=== PATIENT | female | born 1995 | race Caucasian/White ===

== ENCOUNTER 2016-06-20 20:17 | Observation (INO) | payer MEDICAID ==
[~2016-06-20] VITALS: Ht 160 cm; Wt 58.0 kg
[2016-06-20 20:18] VITALS: BP 117/78; PULSE 112; RESP 16; TEMP 97.9; O2SAT 97
[2016-06-20] MEDS ORDERED: SODIUM CHLOR 0.9% 1000 ML INJ 1,000 ML IV SCH (20:41)
[2016-06-20] MEDS ORDERED: ONDANSETRON HCL 4 MG/2 ML VIAL IVP ONE (20:45)
[2016-06-20] MEDS ORDERED: MORPHINE SULFATE 4 MG/ML INJ IV PUSH ONE (21:00)
[2016-06-20 21:04] VITALS: BP 109/64; PULSE 110; RESP 16; O2SAT 100
--- NOTE | 2016-06-20 21:06 | PD ---
HPI Chief Complaint: GI Complaint Time Seen by Provider: 21:01 Travel History International Travel<30 days: No Contact w/Intl Traveler<30days: No Traveled to known affect area: No History of Present Illness HPI 21-year-old female that presents to the ED for evaluation of nausea and vomiting as well as diarrhea and abdominal discomfort since today. Per patient she was seen in urgent care yesterday and diagnosed with bronchitis. Per patient she had a cough and runny nose as well as congestion. Per patient she was given medication and since today she's been having the diarrhea and nausea and vomiting. Per patient she's not been able to keep anything down. Per patient even water she does. She has possibility of . Per patient and her father is having the same symptoms but they started today. She denies eating anything new. No allergies to medication. She denies any chest pain or shortness of breath. Per patient and there is no blood in the stool or the emesis. States having some chills but no actual fever. No allergies to medication. Has not taken anything for this as she cannot keep anything down. Pain in her abdomen is diffuse and is 5 out of 10. PFSH Past Medical History Diminished Hearing: No Medical other: Yes (HYPOGLYCEMIA) Migraines: Yes ?: Not LMP: 05/26/16 Past Surgical History Surgical History: No Previous Surgery Social History Alcohol Use: No Tobacco Use: No Substance Use: No Allergies-Medications (Allergen,Severity, Reaction): Coded Allergies: No Known Allergies (Unverified , 06/20/16) Reported Meds & Prescriptions Reported Meds & Active Scripts Active No Active Prescriptions or Reported Medications Review of Systems General / Constitutional: Positive: Chills, No: Fever, Weight Gain, Weight Loss, Other Eyes: No: Diploplia, Blurred Vision, Photophobia, Drainage, Redness, Foreign Body Sensation, Pain, Tearing, Blind Spots, Visual changes, Blindness, Other HENT: Positive: Rhinitis, Congestion, No: Headaches, Vertigo, Lightheadedness , Sore Throat, Rhinorrhea, Nosebleed, Neck Stiffness, Neck Pain, Masses, Gingival Bleeding, Dental Difficulties, Ear Discharge, Earache, Other Cardiovascular: No: Chest Pain or Discomfort, Palpitations, Irregular Rhythm, Tachycardia, Diaphoresis, Syncope, Dyspnea on exertion, Varicosities, Edema, Cyanosis, Varicosities, Phlebitis, Claudication, Other Respiratory: Positive: Cough, No: Shortness of Breath, Wheezing, Sneezing, Orthopnea, Hemoptysis, Stridor, Night Sweats, Pleuritic Pain, Other Gastrointestinal: Positive: Nausea, Vomiting, Diarrhea, Abdominal Pain, No: Hematemesis, Hematochezia, Constipation, Changes in Bowel Habits, Indigestion, Dysphagia, Loss of Appetite, Other Genitourinary: No: Urgency, Frequency, Dysuria, Nocturia, Hematuria, Decreased Urinary Output, Oliguria, Hesitancy, Dribbling, Incontinence, Pelvic Pain, Flank Pain, Dyspareunia, Discharge, Dysmenorrhea, Menorrhagia, Metorrhagia, Vaginal Bleeding, Other Musculoskeletal: No: Myalgias, Arthralgias, Limited ROM, Weakness, Cramping, Edema, Pain, Atrophy, Other Skin: No Rash, No Itching, No Dryness, No Lumps, No Hives, No Change in Pigmentation, No Change in nails, No Alopecia, No Lesions, No Breast Lumps, No Breast Tenderness, No Breast Swelling, No Other Neurologic: No: Weakness, Dizziness, Syncope, Focal Abnormalities, Coordination Problem, Tremor, Ataxia, Headache, Change in Mentation, Slurred Speech, Paresthesia, Incontinence, Seizures, Sensory Disturbance, Other Psychiatric: No: Anxiety, Depression, Suicidal Ideations, Disorder of Thought, Mood Disorder, Substance Abuse, Homicidal Ideation, Other Endocrine: No: Heat Intolerance, Cold Intolerance, Polyuria, Polydipsia, Other Hematologic/Lymphatic: No: Easy Bruising, Lymph Node Enlargement, Other Physical Exam Narrative GENERAL: SKIN: Warm and dry. HEAD: Atraumatic. Normocephalic. EYES: Pupils equal and round. No scleral icterus. No injection or drainage. ENT: No nasal bleeding or discharge. Mucous membranes pink and moist. Tongue is midline. No uvula deviation. NECK: Trachea midline. No JVD. CARDIOVASCULAR: Regular rate and rhythm. No murmurs, S3, S4. RESPIRATORY: No accessory muscle use. Clear to auscultation. Breath sounds equal bilaterally. GASTROINTESTINAL: Abdomen soft, diffusely tender with deep palpation, but no guarding, nondistended. Hepatic and splenic margins not palpable. MUSCULOSKELETAL: Extremities without clubbing, cyanosis, or edema. No obvious deformities. Full range of motion of the upper and lower extremities bilaterally. 2+ pulses bilaterally. NEUROLOGICAL: Awake and alert. No obvious cranial nerve deficits. Motor grossly within normal limits. Five out of 5 muscle strength in the arms and legs. Normal speech. PSYCHIATRIC: Appropriate mood and affect; insight and judgment normal. Data Data Last Documented VS Vital Signs Date Time Temp Pulse Resp B/P Pulse Ox O2 Delivery O2 Flow Rate FiO2 06/20/16 21:04 110 16 109/64 100 Room Air 06/20/16 20:18 97.9 Orders Complete Blood Count With Diff (06/20/16 20:41) Comprehensive Metabolic Panel (06/20/16 20:41) Lipase (06/20/16 20:41) Urinalysis - C+S If Indicated (06/20/16 20:41) Iv Access Insert/Monitor (06/20/16 20:41) Ondansetron Inj (Zofran Inj) (06/20/16 20:45) Sodium Chlor 0.9% 1000 Ml Inj (Ns 1000 M (06/20/16 20:41) Ed Urine Pregnancytest Poc (06/20/16 20:41) Morphine Inj (Morphine Inj) (06/20/16 21:00) Sodium Chlor 0.9% 1000 Ml Inj (Ns 1000 M (06/20/16 21:15) Lactic Acid (06/20/16 21:24) Urine Culture (06/20/16 20:55) Chest, Single Ap (06/20/16 ) Ceftriaxone Inj (Rocephin Inj) (06/20/16 22:15) Influenzae A/B Antigen (06/20/16 22:47) Labs Laboratory Tests Test 06/20/16 06/20/16 20:55 21:30 White Blood Count 27.4 TH/MM3 Red Blood Count 4.99 MIL/MM3 Hemoglobin 15.1 GM/DL Hematocrit 44.2 % Mean Corpuscular Volume 88.6 FL Mean Corpuscular Hemoglobin 30.3 PG Mean Corpuscular Hemoglobin 34.2 % Concent Red Cell Distribution Width 12.4 % Platelet Count 320 TH/MM3 Mean Platelet Volume 9.2 FL Neutrophils (%) (Auto) 87.4 % Lymphocytes (%) (Auto) 3.8 % Monocytes (%) (Auto) 8.1 % Eosinophils (%) (Auto) 0.6 % Basophils (%) (Auto) 0.1 % Neutrophils # (Auto) 23.9 TH/MM3 Lymphocytes # (Auto) 1.0 TH/MM3 Monocytes # (Auto) 2.2 TH/MM3 Eosinophils # (Auto) 0.2 TH/MM3 Basophils # (Auto) 0.0 TH/MM3 CBC Comment AUTO DIFF Differential Comment AUTO DIFF CONFIRMED Platelet Estimate NORMAL Platelet Morphology Comment NORMAL Red Cell Morphology Comment NORMAL Urine Color YELLOW Urine Turbidity CLOUDY Urine pH 5.5 Urine Specific [place] 1.031 Urine Protein 30 mg/dL Urine Glucose (UA) NEG mg/dL Urine Ketones 10 mg/dL Urine Occult Blood NEG Urine Nitrite NEG Urine Bilirubin NEG Urine Urobilinogen LESS THAN 2.0 MG/DL Urine Leukocyte Esterase SMALL Urine RBC 4 /hpf Urine WBC 8 /hpf Urine Squamous Epithelial 50 /hpf Cells Urine Mucus MANY /lpf Microscopic Urinalysis Comment CULTURE INDICATED Sodium Level 138 MEQ/L Potassium Level 3.7 MEQ/L Chloride Level 105 MEQ/L Carbon Dioxide Level 23.6 MEQ/L Anion Gap 9 MEQ/L Blood Urea Nitrogen 18 MG/DL Creatinine 0.81 MG/DL Estimat Glomerular Filtration 89 ML/MIN Rate Random Glucose 138 MG/DL Calcium Level 8.9 MG/DL Total Bilirubin 0.4 MG/DL Aspartate Amino Transf 18 U/L (AST/SGOT) Alanine Aminotransferase 24 U/L (ALT/SGPT) Alkaline Phosphatase 104 U/L Total Protein 8.3 GM/DL Albumin 4.3 GM/DL Lipase 131 U/L Lactic Acid Level 0.8 mmol/L MDM Medical Decision Making Medical Screen Exam Complete: Yes Emergency Medical Condition: Yes Medical Record Reviewed: Yes Interpretation(s) CBC & BMP Diagram 06/20/16 20:55 lactic acid WNL LFTs and lipase WNL UA shows possible UTI Differential Diagnosis Gastroenteritis versus gastritis versus food poisoning versus viral illness Narrative Course 21-year-old female that presents for nausea, vomit, abd pain and diarrhea. Patient was properly examined by me and my attending. Labs were drawn. Patient was given IV fluids as well as pain medication and antiemetics. Labs show elevated levels accountable normal lactic acid elevation. Possible UTI. Even after 2 bags of fluids patient still tachycardic with an tachycardia in the 100s. Both my attending and I evaluated the patient's abdomen and appears to be benign. Soft. No guarding with no recommend CT imaging at this time. Patient does appear to be septic however. Because of this we'll recommend admission police observation. I started patient ceftriaxone to cover for the UTI as I don't have any other source of infection or blood believe this to be likely secondary to a viral infection. Case was discussed with Dr. Velazquez who agrees to admission. Patient was told of plan and agrees with plan. Sepsis Criteria SIRS Criteria (2 or more): Heart rate over 90, WBC > 66087, < 4000 or > 10% bands Sepsis Criteria (SIRS+source): Infect source susp/known Diagnosis Primary Impression: Sepsis Qualified Code: A41.9 - Sepsis, due to unspecified organism Additional Impressions: Cystitis Viral illness Admitting Information Admitting Physician Requests: Admit Scripts No Active Prescriptions or Reported Meds Giacomo Hammond Jun 20, 2016 21:06
[2016-06-20] MEDS ORDERED: SODIUM CHLOR 0.9% 1000 ML INJ 1,000 ML IV ONE (21:15)
[2016-06-20 21:16] LABS: AUTOMATED NEUTROPHIL # 23.9 TH/MM3 (1.8-7.7); BASOPHIL % 0.1 % (0.0-2.0); EOSINOPHIL # 0.2 TH/MM3 (0-0.4); EOSINOPHIL % 0.6 % (0.0-4.0); HEMATOCRIT 44.2 % (35.0-46.0); LYMPH % 3.8 % (9.0-44.0); MEAN CELL VOLUME 88.6 FL (80.0-100.0); MEAN CORPUSCULAR HEMOGLOBIN 30.3 PG (27.0-34.0); MEAN CORPUSCULAR HGB CONC 34.2 % (32.0-36.0); MONO % 8.1 % (0.0-8.0); NEUT % 87.4 % (16.0-70.0); PLATELET COUNT 320 TH/MM3 (150-450); RED BLOOD COUNT 4.99 MIL/MM3 (4.00-5.30); RED CELL DISTRIBUTION WIDTH 12.4 % (11.6-17.2); WHITE BLOOD COUNT 27.4 TH/MM3 (4.0-11.0)
[2016-06-20 21:17] LABS: HEMO FLAGS AUTO DIFF
[2016-06-20 21:25] LABS: BLOOD, URINE NEG (NEG); COMMENT (UR) CULTURE INDICATED; CULTURE IF INDICATED CULTURE INDICATED; GLUCOSE,URINE NEG (NEG); KETONE, URINE 10 mg/dL (NEG); MUCUS URINE MANY /lpf (OCC); NITRITE,URINE NEG (NEG); PH, URINE 5.5 (5.0-8.5); SQUAMOUS EPITHELIAL CELL URINE 50 /hpf (0-5); URINE COLOR YELLOW (YELLW/STRAW)
[2016-06-20 21:53] LABS: ANION GAP 9 MEQ/L (5-15); AST (GOT) 18 U/L (15-37); BICARBONATE 23.6 MEQ/L (21.0-32.0); BLOOD UREA NITROGEN 18 MG/DL (7-18); CHLORIDE 105 MEQ/L (98-107); GLOMERULAR FILTRATION RATE 89 ML/MIN (>89); POTASSIUM 3.7 MEQ/L (3.5-5.1); SODIUM (NA) 138 MEQ/L (136-145)
[2016-06-20 21:56] LABS: ALKALINE PHOSPHATASE 104 U/L (45-117); ALT (GPT) 24 U/L (10-53); TOTAL BILIRUBIN ADULT 0.4 MG/DL (0.2-1.0)
[2016-06-20 22:08] LABS: PLATELET ESTIMATE SMEAR NORMAL (NORMAL); PLATELET MORPHOLOGY NORMAL (NORMAL); SCAN/DIFF AUTO DIFF CONFIRMED
[2016-06-20] MEDS ORDERED: cefTRIAXone INJ 1,000 MG in SODIUM CHLORIDE 0.9% INJ 100 ML IV ONE (22:15)
--- NOTE | 2016-06-20 22:20 | RADRPT ---
EXAM DATE/TIME: 06/20/2016 21:51 [facility] COMPARISON: No previous studies available for comparison. INDICATIONS : Cough. MEDICAL HISTORY : None. SURGICAL HISTORY : None. ENCOUNTER: Initial ACUITY: 1 day PAIN SCORE: 0/10 LOCATION: Bilateral chest FINDINGS: A single view of the chest demonstrates the lungs to be symmetrically aerated without evidence of mas s, infiltrate or effusion. The cardiomediastinal contours are unremarkable. Osseous structures are intact. CONCLUSION: No evidence of acute cardiopulmonary disease. Shyam Devlin MD on June 20, 2016 at 22:19 Board Certified Radiologist. This report was verified electronically.
[2016-06-20] MEDS ORDERED: ACETAMINOPHEN 325 MG TAB PO PRN (23:00)
[2016-06-20] MEDS ORDERED: SODIUM CHLORIDE 0.9% FLUSH 5 ML FLUSH FLUSH PRN (23:00)
[2016-06-20] MEDS ORDERED: NALOXONE HCL 0.4 MG/ML AMP IV PRN (23:00)
--- NOTE | 2016-06-20 23:01 | PD ---
Data Data Last Documented VS Vital Signs Date Time Temp Pulse Resp B/P Pulse Ox O2 Delivery O2 Flow Rate FiO2 06/20/16 21:04 110 16 109/64 100 Room Air 06/20/16 20:18 97.9 Orders Complete Blood Count With Diff (06/20/16 20:41) Comprehensive Metabolic Panel (06/20/16 20:41) Lipase (06/20/16 20:41) Urinalysis - C+S If Indicated (06/20/16 20:41) Iv Access Insert/Monitor (06/20/16 20:41) Ondansetron Inj (Zofran Inj) (06/20/16 20:45) Sodium Chlor 0.9% 1000 Ml Inj (Ns 1000 M (06/20/16 20:41) Ed Urine Pregnancytest Poc (06/20/16 20:41) Morphine Inj (Morphine Inj) (06/20/16 21:00) Sodium Chlor 0.9% 1000 Ml Inj (Ns 1000 M (06/20/16 21:15) Lactic Acid (06/20/16 21:24) Urine Culture (06/20/16 20:55) Chest, Single Ap (06/20/16 ) Ceftriaxone Inj (Rocephin Inj) (06/20/16 22:15) Influenzae A/B Antigen (06/20/16 22:47) Labs Laboratory Tests Test 06/20/16 06/20/16 20:55 21:30 White Blood Count 27.4 TH/MM3 Red Blood Count 4.99 MIL/MM3 Hemoglobin 15.1 GM/DL Hematocrit 44.2 % Mean Corpuscular Volume 88.6 FL Mean Corpuscular Hemoglobin 30.3 PG Mean Corpuscular Hemoglobin 34.2 % Concent Red Cell Distribution Width 12.4 % Platelet Count 320 TH/MM3 Mean Platelet Volume 9.2 FL Neutrophils (%) (Auto) 87.4 % Lymphocytes (%) (Auto) 3.8 % Monocytes (%) (Auto) 8.1 % Eosinophils (%) (Auto) 0.6 % Basophils (%) (Auto) 0.1 % Neutrophils # (Auto) 23.9 TH/MM3 Lymphocytes # (Auto) 1.0 TH/MM3 Monocytes # (Auto) 2.2 TH/MM3 Eosinophils # (Auto) 0.2 TH/MM3 Basophils # (Auto) 0.0 TH/MM3 CBC Comment AUTO DIFF Differential Comment AUTO DIFF CONFIRMED Platelet Estimate NORMAL Platelet Morphology Comment NORMAL Red Cell Morphology Comment NORMAL Urine Color YELLOW Urine Turbidity CLOUDY Urine pH 5.5 Urine Specific [place] 1.031 Urine Protein 30 mg/dL Urine Glucose (UA) NEG mg/dL Urine Ketones 10 mg/dL Urine Occult Blood NEG Urine Nitrite NEG Urine Bilirubin NEG Urine Urobilinogen LESS THAN 2.0 MG/DL Urine Leukocyte Esterase SMALL Urine RBC 4 /hpf Urine WBC 8 /hpf Urine Squamous Epithelial 50 /hpf Cells Urine Mucus MANY /lpf Microscopic Urinalysis Comment CULTURE INDICATED Sodium Level 138 MEQ/L Potassium Level 3.7 MEQ/L Chloride Level 105 MEQ/L Carbon Dioxide Level 23.6 MEQ/L Anion Gap 9 MEQ/L Blood Urea Nitrogen 18 MG/DL Creatinine 0.81 MG/DL Estimat Glomerular Filtration 89 ML/MIN Rate Random Glucose 138 MG/DL Calcium Level 8.9 MG/DL Total Bilirubin 0.4 MG/DL Aspartate Amino Transf 18 U/L (AST/SGOT) Alanine Aminotransferase 24 U/L (ALT/SGPT) Alkaline Phosphatase 104 U/L Total Protein 8.3 GM/DL Albumin 4.3 GM/DL Lipase 131 U/L Lactic Acid Level 0.8 mmol/L [facility] Supervised Visit with ALISON: Yes Narrative Course The history, exam, and medical decision-making in the associated mid-level provider note were completed with my assistance. I reviewed and agree with the findings presented. I attest that I had a [id number] encounter with the patient on the same day, and personally performed and documented my assessment and findings in the medical record. *My assessment and Findings: The 21 year-old woman presents emergency Department with nausea and vomiting times today in the setting of URI symptoms times a couple days. Family member at home with similar symptoms. She's been thrown up all day. She has belly pain when she throws up only. No urinary symptoms. Some fevers and chills at home. Labs show markedly elevated white count consistent with infection. Belly exam is really pretty benign. She has some trace amount of tenderness in the left lower quadrant, but nothing in the right. No rebound or guarding. Recommend against CT imaging at this time. She does look a little bit ill, and taken together with her high white count, and lack of definite/definable source , we'll plan on admitting patient for observation. Diagnosis Primary Impression: Sepsis Qualified Code: A41.9 - Sepsis, due to unspecified organism Additional Impressions: Viral illness Cystitis Scripts No Active Prescriptions or Reported Meds Graeme Conde MD Jun 20, 2016 23:01
[2016-06-20] MEDS: ONDANSETRON HCL 4 MG/2 ML VIAL IVP PRN ×2 (23:38→23:56)
[2016-06-21 00:01] VITALS: BP 119/77; TEMP 98.7
[2016-06-21 01:16] VITALS: BP 110/56; PULSE 99; RESP 21; TEMP 98.7; O2SAT 97
[2016-06-21 03:57] VITALS: BP 107/50; PULSE 96; RESP 21; TEMP 98.7; O2SAT 98
--- NOTE | 2016-06-21 04:45 | HHI.HP ---
[facility] Physician No Primary Care Physician Admission Diagnosis sepsis, cystitis, viral illness Diagnoses: Travel History International Travel<30 Days: No Contact w/Intl Traveler <30 Da: No Traveled to Known Affected Are: No History of Present Illness n/v since yesterday no urinary symptoms sob/cough - bronchitis - seen at urgent care, given cough syrup and amoxicillin no chest pain no fever +chills no unusual dietary intake 4 family members with similar symptoms Past Family Social History Allergies: Coded Allergies: No Known Allergies (Unverified , 06/20/16) Physical Exam Vital Signs Vital Signs Date Time Temp Pulse Resp B/P Pulse Ox O2 Delivery O2 Flow Rate FiO2 06/21/16 03:57 98.7 96 21 107/50 98 06/21/16 01:16 98.7 99 21 110/56 97 06/21/16 00:01 98.7 112 16 119/77 100 06/20/16 21:04 110 16 109/64 100 Room Air 06/20/16 20:46 16 06/20/16 20:18 97.9 112 16 117/78 97 Room Air Physical Exam GENERAL: This is a well-nourished, well-developed patient, in no apparent distress. SKIN: No rashes, ecchymoses or lesions. Cool and dry. HEAD: Atraumatic. Normocephalic. No temporal or scalp tenderness. EYES: Pupils equal round and reactive. Extraocular motions intact. No scleral icterus. No injection or drainage. ENT: Nose without bleeding, purulent drainage or septal hematoma. Throat without erythema, tonsillar hypertrophy or exudate. Uvula midline. Airway patent. NECK: Trachea midline. No JVD or lymphadenopathy. Supple, nontender, no meningeal signs. CARDIOVASCULAR: Regular rate and rhythm without murmurs, gallops, or rubs. RESPIRATORY: Clear to auscultation. Breath sounds equal bilaterally. No wheezes , rales, or rhonchi. GASTROINTESTINAL: Abdomen soft, non-tender, nondistended. No hepato-splenomegaly , or palpable masses. No guarding. MUSCULOSKELETAL: Extremities without clubbing, cyanosis, or edema. No joint tenderness, effusion, or edema noted. No calf tenderness. Negative Homans sign bilaterally. NEUROLOGICAL: Awake and alert. Cranial nerves II through XII intact. Motor and sensory grossly within normal limits. Five out of 5 muscle strength in all muscle groups. Normal speech. Laboratory Laboratory Tests Test 06/20/16 06/20/16 20:55 21:30 White Blood Count 27.4 Red Blood Count 4.99 Hemoglobin 15.1 Hematocrit 44.2 Mean Corpuscular Volume 88.6 Mean Corpuscular Hemoglobin 30.3 Mean Corpuscular Hemoglobin 34.2 Concent Red Cell Distribution Width 12.4 Platelet Count 320 Mean Platelet Volume 9.2 Neutrophils (%) (Auto) 87.4 Lymphocytes (%) (Auto) 3.8 Monocytes (%) (Auto) 8.1 Eosinophils (%) (Auto) 0.6 Basophils (%) (Auto) 0.1 Neutrophils # (Auto) 23.9 Lymphocytes # (Auto) 1.0 Monocytes # (Auto) 2.2 Eosinophils # (Auto) 0.2 Basophils # (Auto) 0.0 CBC Comment AUTO DIFF Differential Comment AUTO DIFF CONFIRMED Platelet Estimate NORMAL Platelet Morphology Comment NORMAL Red Cell Morphology Comment NORMAL Urine Color YELLOW Urine Turbidity CLOUDY Urine pH 5.5 Urine Specific [place] 1.031 Urine Protein 30 Urine Glucose (UA) NEG Urine Ketones 10 Urine Occult Blood NEG Urine Nitrite NEG Urine Bilirubin NEG Urine Urobilinogen LESS THAN 2.0 Urine Leukocyte Esterase SMALL Urine RBC 4 Urine WBC 8 Urine Squamous Epithelial 50 Cells Urine Mucus MANY Microscopic Urinalysis Comment CULTURE INDICATED Sodium Level 138 Potassium Level 3.7 Chloride Level 105 Carbon Dioxide Level 23.6 Anion Gap 9 Blood Urea Nitrogen 18 Creatinine 0.81 Estimat Glomerular Filtration 89 Rate Random Glucose 138 Calcium Level 8.9 Total Bilirubin 0.4 Aspartate Amino Transf 18 (AST/SGOT) Alanine Aminotransferase 24 (ALT/SGPT) Alkaline Phosphatase 104 Total Protein 8.3 Albumin 4.3 Lipase 131 Lactic Acid Level 0.8 Date/Time Procedure Status Source Growth 06/20/16 22:50 Influenza Types A,B Antigen ([facility]) - Final Complete Nasal Washing NEGATIVE FOR FLU A AND B ANTIGEN.... 06/20/16 20:55 Urine Culture Worksheet Urine Clean Catch Pending Result Diagram: 06/20/16205406/20/162054 Assessment and Plan Problem List: (1) Gastroenteritis ICD Code: K52.9 Status: Acute Assessment and Plan Written by Shakira Barbour, acting as scribe for Dr. Herrera on 06/21/16 at 04:45. Physician Certification Order for Inpatient Services The services are ordered in accordance with Medicare regulations or non- Medicare payer requirements, as applicable. In the case of services not specified as inpatient-only, they are appropriately provided as inpatient services in accordance with the 2-midnight benchmark. days is the estimated time the patient will need to remain in the hospital, assuming treatment plan goals are met and no additional complications. Shakira Barbour Jun 21, 2016 04:45
--- NOTE | 2016-06-21 04:55 | HHI.HP ---
HPI Service [facility] Primary Care Physician No Primary Care Physician Admission Diagnosis sepsis, cystitis, viral illness Diagnoses: (1) Gastroenteritis (2) Urinary tract infection Chief Complaint: Nausea and vomiting Travel History International Travel<30 Days: No Contact w/Intl Traveler <30 Da: No Traveled to Known Affected Are: No History of Present Illness Ms. Schaefer is a 21-year-old female with a past medical history of hypoglycemia and classic migraines who presented to the emergency department on 06/20/2016 with abdominal pain, nausea and vomiting, and diarrhea. White blood count in the emergency room was 27.4 with neutrophilia and lymphocytosis. Urinalysis was suspicious for urinary tract infection; culture was sent and is pending. The patient is seen in the CDU. She reports that she had nausea and vomiting yesterday and was unable to keep down even water. She is currently feeling a bit better and has been able to hold water down. She is requesting to have her diet advanced. She denies any urinary symptoms, chest pain, fever. She reports for other family members with similar symptoms and no unusual dietary intake. She was seen at urgent care yesterday and diagnosed with bronchitis and treated with amoxicillin and cough syrup. . Review of Systems Except as stated in HPI: all other systems reviewed are Neg Past Family Social History Past Medical History "Classic" Migraines Hypoglycemia . Past Surgical History None . Reported Medications Reported Meds & Active Scripts Active No Active Prescriptions or Reported Medications . Allergies: Coded Allergies: No Known Allergies (Unverified , 06/20/16) Active Ordered Medications Current Medications Ondansetron HCl 4 mg 4 mg ONCE ONCE IVP Last administered on 06/20/16 20:57; Start 06/20/16 at 20:45; Stop 06/20/16 at 20:46; Status DC Sodium Chloride (NS 1000 ml Inj) 1,000 ml @ 1,000 mls/hr Q1H IV Last administered on 06/20/16 20:56; Start 06/20/16 at 20:41; Stop 06/20/16 at 21:40 ; Status DC Morphine Sulfate 4 mg 4 mg ONCE ONCE IV PUSH Last administered on 06/20/16 21 :06; Start 06/20/16 at 21:00; Stop 06/20/16 at 21:01; Status DC Sodium Chloride 1,000 ml @ 2,000 mls/hr Q30M ONCE IV Last administered on 06/20 21:24; Start 06/20/16 at 21:15; Stop 06/20/16 at 21:44; Status DC Ceftriaxone Sodium/Sodium Chloride (Rocephin Inj/NS Inj) 100 ml @ 200 mls/hr ONCE ONCE IV Last administered on 06/20/16 22:46; Start 06/20/16 at 22:15; Stop 06/20/16 at 22:44; Status DC IV Flush (NS Flush) 2 ml UNSCH PRN FLUSH FLUSH AFTER USING IV ACCESS; Start 03/27 at 23:00 IV Flush (NS Flush) 2 ml BID FLUSH ; Start 06/21/16 at 09:00 Acetaminophen (Tylenol) 650 mg Q4H PRN PO TEMP > 100.4; Start 06/20/16 at 23:00 Ondansetron HCl (Zofran Inj) 4 mg Q6H PRN IVP NAUSEA OR VOMITING Last administered on 06/20/16 23:56; Start 06/20/16 at 23:00 Naloxone HCl (Narcan Inj) 0.4 mg UNSCH PRN IV SEE LABEL COMMENTS; Start at 23:00 . Family History Multiple family members with similar symptoms . Social History Tobacco: Denies Alcohol: Denies Illicit Drugs: Denies . Physical Exam Vital Signs Vital Signs Date Time Temp Pulse Resp B/P Pulse Ox O2 Delivery O2 Flow Rate FiO2 06/21/16 03:57 98.7 96 21 107/50 98 06/21/16 01:16 98.7 99 21 110/56 97 06/21/16 00:01 98.7 112 16 119/77 100 06/20/16 21:04 110 16 109/64 100 Room Air 06/20/16 20:46 16 06/20/16 20:18 97.9 112 16 117/78 97 Room Air Physical Exam GENERAL: This is a pleasant, well-nourished, well-developed patient, in no apparent distress. SKIN: No rashes, ecchymoses or lesions. Cool and dry. HEAD: Atraumatic. Normocephalic. EYES: No scleral icterus. No injection or drainage. ENT: Nose without bleeding, purulent drainage. NECK: Trachea midline. No JVD or lymphadenopathy. CARDIOVASCULAR: Regular rate and rhythm without murmurs, gallops, or rubs. RESPIRATORY: Clear to auscultation. Breath sounds equal bilaterally. No wheezes , rales, or rhonchi. GASTROINTESTINAL: Abdomen soft, non-tender, nondistended. No guarding. MUSCULOSKELETAL: Extremities without clubbing, cyanosis, or edema. No calf tenderness. NEUROLOGICAL: Awake and alert. Motor and sensory grossly within normal limits. Normal speech. . Laboratory Laboratory Tests Test 06/20/16 06/20/16 20:55 21:30 White Blood Count 27.4 Red Blood Count 4.99 Hemoglobin 15.1 Hematocrit 44.2 Mean Corpuscular Volume 88.6 Mean Corpuscular Hemoglobin 30.3 Mean Corpuscular Hemoglobin 34.2 Concent Red Cell Distribution Width 12.4 Platelet Count 320 Mean Platelet Volume 9.2 Neutrophils (%) (Auto) 87.4 Lymphocytes (%) (Auto) 3.8 Monocytes (%) (Auto) 8.1 Eosinophils (%) (Auto) 0.6 Basophils (%) (Auto) 0.1 Neutrophils # (Auto) 23.9 Lymphocytes # (Auto) 1.0 Monocytes # (Auto) 2.2 Eosinophils # (Auto) 0.2 Basophils # (Auto) 0.0 CBC Comment AUTO DIFF Differential Comment AUTO DIFF CONFIRMED Platelet Estimate NORMAL Platelet Morphology Comment NORMAL Red Cell Morphology Comment NORMAL Urine Color YELLOW Urine Turbidity CLOUDY Urine pH 5.5 Urine Specific [place] 1.031 Urine Protein 30 Urine Glucose (UA) NEG Urine Ketones 10 Urine Occult Blood NEG Urine Nitrite NEG Urine Bilirubin NEG Urine Urobilinogen LESS THAN 2.0 Urine Leukocyte Esterase SMALL Urine RBC 4 Urine WBC 8 Urine Squamous Epithelial 50 Cells Urine Mucus MANY Microscopic Urinalysis Comment CULTURE INDICATED Sodium Level 138 Potassium Level 3.7 Chloride Level 105 Carbon Dioxide Level 23.6 Anion Gap 9 Blood Urea Nitrogen 18 Creatinine 0.81 Estimat Glomerular Filtration 89 Rate Random Glucose 138 Calcium Level 8.9 Total Bilirubin 0.4 Aspartate Amino Transf 18 (AST/SGOT) Alanine Aminotransferase 24 (ALT/SGPT) Alkaline Phosphatase 104 Total Protein 8.3 Albumin 4.3 Lipase 131 Lactic Acid Level 0.8 Date/Time Procedure Status Source Growth 06/20/16 22:50 Influenza Types A,B Antigen ([facility]) - Final Complete Nasal Washing NEGATIVE FOR FLU A AND B ANTIGEN.... 06/20/16 20:55 Urine Culture Worksheet Urine Clean Catch Pending Result Diagram: 06/20/16205406/20/162054 Imaging Chest x-ray with no acute cardiopulmonary disease noted Assessment and Plan Problem List: (1) Gastroenteritis ICD Code: K52.9 Status: Acute (2) Leukocytosis ICD Code: D72.829 Status: Acute (3) Urinary tract infection ICD Code: N39.0 Status: Acute Assessment and Plan Gastroenteritis - likely viral - Clear liquid diet - Zofran 4 mg IV every 6 hours as needed for nausea and vomiting - Monitor vital signs every 4 hours - Negative for flu a and b UTI - Received 1 g of Rocephin IV in ER - Start Bactrim DS 1 tab every 12 hours for 3 days - Urine culture pending - will need PCP follow-up DVT prophylaxis - SCDs Possible discharge home later today if tolerating diet. Written by Shakira Barbour, acting as scribe for Dr. Herrera on 06/21/16 at 04: 55. All or portions of this note were transcribed by scribe JOYCE Boyer. I, Dr. Alberto Herrera personally performed the history, physical exam, and medical decision making; and confirmed the accuracy of the information in the transcribed note. Authenticated by Dr. Alberto Herrera on 06/21/16 at 06:39. Discussed Condition With Patient and ER physician . Shakira Barbour Jun 21, 2016 04:55 Alberto Herrera MD Jun 21, 2016 06:40
[2016-06-21 05:05] LABS: AUTOMATED NEUTROPHIL # 11.7 TH/MM3 (1.8-7.7); BASOPHIL % 0.1 % (0.0-2.0); EOSINOPHIL % 0.2 % (0.0-4.0); HEMATOCRIT 36.9 % (35.0-46.0); HEMO FLAGS DIFF FINAL; LYMPH % 7.1 % (9.0-44.0); MEAN CELL VOLUME 87.4 FL (80.0-100.0); MEAN CORPUSCULAR HEMOGLOBIN 30.2 PG (27.0-34.0); MEAN CORPUSCULAR HGB CONC 34.6 % (32.0-36.0); MONO % 6.5 % (0.0-8.0); NEUT % 86.1 % (16.0-70.0); PLATELET COUNT 240 TH/MM3 (150-450); RED BLOOD COUNT 4.23 MIL/MM3 (4.00-5.30); RED CELL DISTRIBUTION WIDTH 12.5 % (11.6-17.2); WHITE BLOOD COUNT 13.6 TH/MM3 (4.0-11.0)
[2016-06-21 05:31] LABS: BICARBONATE 21.1 MEQ/L (21.0-32.0); POTASSIUM 3.7 MEQ/L (3.5-5.1)
[2016-06-21 07:05] VITALS: BP 108/54; PULSE 95; RESP 18; TEMP 98; O2SAT 96
[2016-06-21] MEDS ORDERED: NS + KCL 20 MEQ INJ 1,000 ML IV PRN (09:00)
[2016-06-21] MEDS ORDERED: SULFAMETHOXAZOLE-TRIMETHOPRIM DS 800-160 MG TAB PO SCH (09:00)
[2016-06-21] MEDS ORDERED: SODIUM CHLORIDE 0.9% FLUSH 5 ML FLUSH FLUSH SCH (09:00)
--- NOTE | 2016-06-21 09:45 | HHI.PR ---
Subjective Remarks Follow up for gastroenteritis, UTI. The patient reports starting to feel better. She was able to tolerate her clear liquid diet this morning. Denies any nausea/vomiting. No fevers/chills. Denies diarrhea overnight. She has no other medical complaints at this time. She feels ready for discharge. Objective Vitals Vital Signs Date Time Temp Pulse Resp B/P Pulse Ox O2 Delivery O2 Flow Rate FiO2 06/21/16 07:05 98.0 95 18 108/54 96 06/21/16 03:57 98.7 96 21 107/50 98 06/21/16 01:16 98.7 99 21 110/56 97 06/21/16 00:01 98.7 112 16 119/77 100 06/20/16 21:04 110 16 109/64 100 Room Air 06/20/16 20:46 16 06/20/16 20:18 97.9 112 16 117/78 97 Room Air Result Diagram: 06/21/16 0431 06/21/16 043 Objective Remarks GENERAL: Well-developed well-nourished young female patient in [facility]. SKIN: Warm and dry. HEAD: Atraumatic. Normocephalic. EYES: Pupils equal and round. No scleral icterus. No injection or drainage. ENT: No nasal bleeding or discharge. Mucous membranes pink and moist. NECK: Trachea midline. CARDIOVASCULAR: Regular rate and rhythm. No murmur appreciated. RESPIRATORY: No accessory muscle use. Clear to auscultation. Breath sounds equal bilaterally. GASTROINTESTINAL: Abdomen soft, non-tender, nondistended. MUSCULOSKELETAL: Extremities without clubbing, cyanosis, or edema. No obvious deformities. No CVA tenderness bilaterally. NEUROLOGICAL: Awake and alert. No obvious cranial nerve deficits. Motor grossly within normal limits. Normal speech. PSYCHIATRIC: Appropriate mood and affect; insight and judgment normal. Medications and IVs Current Medications Medications (Trade) Dose Ordered Sig/Shreya Route Start Time Stop Time Status Last Admin (NS Flush) 2 ml UNSCH PRN FLUSH 06/20/16 23:00 (NS Flush) 2 ml BID FLUSH 06/21/16 09:00 06/21/16 09:00 (Tylenol) 650 mg Q4H PRN PO 06/20/16 23:00 (Zofran Inj) 4 mg Q6H PRN IVP 06/20/16 23:00 06/20/16 23:56 (Narcan Inj) 0.4 mg UNSCH PRN IV 06/20/16 23:00 Trimethoprim/ Sulfamethoxazole 1 tab 1 tab Q12HR PO 06/21/16 09:00 06/24/16 08:59 06/21/16 09:00 (NS + KCl 20 Meq Inj) 1,000 ml @ 84 mls/hr [id number] PRN IV 06/21/16 09:00 Urinary Catheter: No Vascular Central Line Catheter: No A/P Problem List: (1) Gastroenteritis ICD Code: K52.9 Status: Acute (2) Leukocytosis ICD Code: D72.829 Status: Acute (3) Urinary tract infection ICD Code: N39.0 Status: Acute Assessment and Plan 21-year-old female with hx of migraines, presents with: Sepsis: leukocytosis WBC 27K, tachycardia HR >100. Source- secondary to viral illness and UTI, see below. Supportive treatment with IVF. Leukocytosis improved , WBC 13.6K today. Afebrile. Gastroenteritis: likely viral, also possibly related to recent antibiotic use ( started on Amoxicillin as outpatient for URI 2 days ago). Influenza negative. Clear liquid diet, patient tolerated well, advance to regular. Supportive treatment with IVF, antiemetics prn. Patient much improved. UTI: S/p 1 g of Rocephin IV in ER. Started on Bactrim DS 1 tab bid for 7 days. Urine culture pending - will need PCP follow-up, patient verbalized understanding Sinus Tachycardia: suspect secondary to infection as above. EKG with sinus tachycardia, reviewed by me. Continue hydration. DVT prophylaxis- SCDs Written by Diana Silvestre, acting as scribe for Dr. Villeda on 06/21/16 at 09: 45. All or portions of this note were transcribed by scribe []. I, Dr. Marcio Villeda personally performed the history, physical exam, and medical decision making; and confirmed the accuracy of the information in the transcribed note. Authenticated by Dr. Marcio Villeda on 06/21/16 at 16:58. Discharge Planning Discharge if patient tolerates her lunch. Discharge patient to home Condition on discharge: Improved Regular Diet as tolerated Ad Tayla activity Rx written: Bactrim 1 tab po bid x7days Follow-up with primary care physician within 1 week Diana Silvestre PA-C Jun 21, 2016 09:45 Marcio Villeda MD Jun 21, 2016 16:58
[2016-06-21] MEDS ORDERED: BACT800T5 PO (09:46)
--- NOTE | 2016-06-21 09:47 | HHI.DCPOC ---
Discharge Care Plan Diagnosis: (1) Gastroenteritis (2) Urinary tract infection Goals to Promote Your Health * To prevent worsening of your condition and complications * To maintain your health at the optimal level Directions to Meet Your Goals Take your medications as prescribed Follow your dietary instruction Follow activity as directed Keep your appointments as scheduled Take your immunizations and boosters as scheduled If your symptoms worsen call your PCP, if no PCP go to Urgent Care Center or Emergency Room Smoking is Dangerous to Your Health. Avoid second hand smoke Call the 24-hour hour crisis hotline for domestic abuse at Diana Silvestre PA-C Jun 21, 2016 9:47 am
[2016-06-21 11:12] VITALS: BP 95/52; PULSE 90; RESP 18; TEMP 98.4; O2SAT 96
--- NOTE | 2016-06-21 14:53 | EKG ---
Date Performed: 06/21/2016 Time Performed: 09:56:01 PTAGE: 21 years EKG: Sinus rhythm WITH SINUS ARRHYTHMIA NONSPECIFIC T-WAVE ABNORMALITY BORDERLINE ECG NO PREVIOUS TRACING DOCTOR: Vidhya Kebede Interpretating Date/Time 06/21/2016 14:49:18
== END 2016-06-21 14:50 | disposition home or self-care (01) ==
LOC: NEPE 20:17 → NEDA 23:01 → INTOOBSV 23:01 → NEPHCDU 06-21 00:09 → UNDODISIN 06-21 14:50
PROVIDERS: ADMIT Internal Medicine; ATTEND Internal Medicine
DX: A41.9 Sepsis, unspecified organism (principal); K52.9 Noninfective gastroenteritis and colitis, unspecified; N39.0 Urinary tract infection, site not specified; G43.909 Migraine, unspecified, not intractable, without status migrainosus; J40 Bronchitis, not specified as acute or chronic; R00.0 Tachycardia, unspecified
CPT/HCPCS: 71010; 80048; 80053; 81001; 83605; 83690; 84703; 85025; 87086; 87804; 93005; 96361; 96374; 96375; 99285; G0378; J0696; J2270; J2405; J7030

== ENCOUNTER 2016-08-09 14:50 | Emergency (ER) | payer MEDICAID ==
[~2016-08-09] VITALS: Ht 160 cm; Wt 57.7 kg
[~2016-08-09 14:50] MED LIST: BACT800T5 PO
[2016-08-09 14:52] VITALS: BP 129/85; PULSE 112; RESP 16; TEMP 99.1; O2SAT 96
--- NOTE | 2016-08-09 15:06 | PD ---
Physical Exam Time Seen by Provider: 15:03 Narrative 21 y/o female presents for evaluation of late menstrual period. Her LMP was late may 2016 and she is concerned that she may be . Used an otc test but states that it malfunctioned. Denies any other complaints at this time. vss Seen at triage desk. Awaiting bed placement. Data Data Last Documented VS Vital Signs Date Time Temp Pulse Resp B/P Pulse Ox O2 Delivery O2 Flow Rate FiO2 08/09/16 14:52 99.1 112 16 129/85 96 Room Air [facility] Medical Record Reviewed: Yes Supervised Visit with ALISON: Brayden Keys August 09, 2016 15:06
--- NOTE | 2016-08-09 15:09 | PD ---
Physical Exam Time Seen by Provider: 15:08 Narrative 21 y/o female here with dyspnea, slight cough for one day. Hx of asthma. Given a breathing treatment at urgent care and sent here for further evaluation. vss Seen at triage desk. Awaiting bed placement. Data Data Last Documented VS Vital Signs Date Time Temp Pulse Resp B/P Pulse Ox O2 Delivery O2 Flow Rate FiO2 08/09/16 14:52 99.1 112 16 129/85 96 Room Air [facility] Medical Record Reviewed: Yes Supervised Visit with ALISON: No Brayden Poe August 09, 2016 15:09
== END 2016-08-09 19:32 | disposition left against medical advice (07) ==
LOC: NED 14:50
DX: R06.00 Dyspnea, unspecified (principal); R05 Cough; Z87.09 Personal history of other diseases of the respiratory system
CPT/HCPCS: 99282

== ENCOUNTER 2016-08-09 17:12 | Emergency (ER) | payer MEDICAID ==
[~2016-08-09] VITALS: Ht 160 cm; Wt 58.0 kg
[2016-08-09 17:13] VITALS: BP 118/78; PULSE 112; RESP 16; O2SAT 100
[2016-08-09 17:20] VITALS: TEMP 98.5
[2016-08-09] MEDS ORDERED: RESP: ALBUTEROL 2.5 MG/IPRATROPIUM 0.5 MG NEB (SCH) INH ONE (17:30)
--- NOTE | 2016-08-09 17:30 | PD ---
HPI Chief Complaint: Respiratory Symptoms Time Seen by Provider: 17:27 Travel History International Travel<30 days: No Contact w/Intl Traveler<30days: No Traveled to known affect area: No History of Present Illness HPI 21-year-old female presents the emergency Department with 2 days of "shortness of breath." Patient feels like she can't get a full breath. Patient denies history of asthma and was given an albuterol inhaler yesterday when she went to [facility]. Patient is here as she feels no different. Patient denies fever, chills, chest pain, cough, or significant wheezing. Patient has no risk factors for PE. Patient has not been diagnosed with asthma prior to this. Patient states her symptoms develop she was walking around [facility] yesterday. Patient denies anxiety or stress. Patient denies history of anemia, and takes no medications. She has no known drug allergies. PFSH Past Medical History Asthma: Yes Diminished Hearing: No Medical other: Yes (Hypoglycemia) Respiratory: Yes (asthma) Migraines: Yes Tetanus Vaccination: < 5 Years Influenza Vaccination: No ?: Not LMP: 07/19/16 Past Surgical History Surgical History: No Previous Surgery Social History Alcohol Use: No Tobacco Use: No Substance Use: No Allergies-Medications (Allergen,Severity, Reaction): Coded Allergies: No Known Allergies (Unverified , 08/09/16) Reported Meds & Prescriptions Reported Meds & Active Scripts Active No Active Prescriptions or Reported Medications Review of Systems Except as stated in HPI: all other systems reviewed are Neg General / Constitutional: No: Fever Eyes: No: Visual changes HENT: No: Headaches Cardiovascular: No: Chest Pain or Discomfort Respiratory: Positive: Shortness of Breath, No: Cough, Wheezing, Sneezing, Orthopnea, Hemoptysis, Night Sweats, Pleuritic Pain Gastrointestinal: No: Abdominal Pain Genitourinary: No: Dysuria Musculoskeletal: No: Pain Skin: No Rash Neurologic: No: Weakness Psychiatric: No: Depression Endocrine: No: Polydipsia Hematologic/Lymphatic: No: Easy Bruising Physical Exam Narrative GENERAL: Patient appears no acute distress. SKIN: Warm and dry. Normal color. Normal turgor. HEAD: Atraumatic. Normocephalic. EYES: Pupils equal and round. No scleral icterus. No injection or drainage. ENT: No nasal bleeding or discharge. Mucous membranes pink and moist. NECK: Trachea midline. No JVD. CARDIOVASCULAR: Regular rate and rhythm. RESPIRATORY: No accessory muscle use. Clear to auscultation. Breath sounds equal bilaterally. GASTROINTESTINAL: Abdomen soft, non-tender, nondistended. Hepatic and splenic margins not palpable. MUSCULOSKELETAL: Extremities without clubbing, cyanosis, or edema. No obvious deformities. NEUROLOGICAL: Awake and alert. No obvious cranial nerve deficits. Motor grossly within normal limits. Five out of 5 muscle strength in the arms and legs. Normal speech. PSYCHIATRIC: Appropriate mood and affect; insight and judgment normal. Data Data Last Documented VS Vital Signs Date Time Temp Pulse Resp B/P Pulse Ox O2 Delivery O2 Flow Rate FiO2 08/09/16 17:20 98.5 08/09/16 17:20 14 100 Room Air 08/09/16 17:13 112 118/78 Orders Resp Peak Flow Rate (08/09/16 ) Electrocardiogram (08/09/16 17:30) Chest, Pa & Lat (08/09/16 17:30) Albuterol-Ipratropium Neb (Duoneb Neb) (08/09/16 17:30) MDM Medical Decision Making Medical Screen Exam Complete: Yes Emergency Medical Condition: Yes Medical Record Reviewed: Yes Differential Diagnosis Asthma. Shortness of breath. Wheezing. Anxiety. Possible PE. Narrative Course Patient is medically stable at time of exam. Peak flows were performed pre-and post-DuoNeb. Peak flow went from 325-375. Chest x-ray is ordered showing no acute process per radiologist. Patient is discussed with Dr. Hess who examined the patient as well. Based on the patient's vital signs and risk factors we do not feel the patient has a PE and further testing not felt warranted. Patient has very little risk factor for anemia or other causes of shortness of breath. Based on her history and physical. Patient will continue with the albuterol 2 puffs every 4-6 hours when necessary. Patient follow-up with local primary care physician and perhaps a warp bleaching vat tender if symptoms continue. Patient can always return to the emergency department if symptoms worsen as discussed. Diagnosis Primary Impression: Mild shortness of breath Referrals: Primary Care Physician [employer] Patient Instructions: General Instructions, How to Use a Metered-Dose Inhaler and a Spacer (ED) Additional Instructions: Peak flows were performed pre-and post-DuoNeb. Peak flow went from 325-375. Chest x-ray is ordered showing no acute process per radiologist. Patient is discussed with Dr. Hess who examined the patient as well. Based on the patient's vital signs and risk factors we do not feel the patient has a PE and further testing not felt warranted. Patient has very little risk factor for anemia or other causes of shortness of breath. Based on her history and physical. Patient will continue with the albuterol 2 puffs every 4-6 hours when necessary. Patient follow-up with local primary care physician and perhaps a warp bleaching vat tender if symptoms continue. Patient can always return to the emergency department if symptoms worsen as discussed. Med/Other Pt SpecificInfo: No Change to Meds Scripts No Active Prescriptions or Reported Meds Disposition: 01 DISCHARGE HOME Condition: Stable Cheko Riggs August 09, 2016 17:30
--- NOTE | 2016-08-09 18:23 | RADHPO ---
EXAM DATE/TIME: 08/09/2016 17:57 [facility] COMPARISON: CHEST SINGLE AP, June 20, 2016, 21:51. INDICATIONS : Short of breath. MEDICAL HISTORY : Asthma SURGICAL HISTORY : None. ENCOUNTER: Initial ACUITY: 1 day PAIN SCORE: 0/10 LOCATION: Bilateral chest FINDINGS: PA and lateral views of the chest demonstrate the lungs to be symmetrically aerated without evidence of mass, infiltrate or effusion. The cardiomediastinal contours are unremarkable. Osseous structure s are intact. CONCLUSION: No acute disease. Shyam Navarro MD on August 09, 2016 at 18:21 Board Certified Radiologist. This report was verified electronically.
--- NOTE | 2016-08-09 18:39 | PD ---
Physical Exam Narrative GENERAL: Well-nourished, well-developed patient. Well-appearing SKIN: Warm and dry. HEAD: Normocephalic and atraumatic. EYES: No injection or drainage. ENT: No nasal drainage noted. NECK: Supple, trachea midline. CARDIOVASCULAR: Regular rate and rhythm RESPIRATORY: Mild diminished bilaterally. No accessory muscle use. GASTROINTESTINAL: Abdomen soft, non-tender, nondistended. EXTREMITIES: No edema. NEUROLOGICAL: Awake and alert. Motor and sensory grossly within normal limits. Normal speech. Data Data Last Documented VS Vital Signs Date Time Temp Pulse Resp B/P Pulse Ox O2 Delivery O2 Flow Rate FiO2 08/09/16 17:20 98.5 08/09/16 17:20 14 100 Room Air 08/09/16 17:13 112 118/78 Orders Resp Peak Flow Rate (08/09/16 ) Electrocardiogram (08/09/16 17:30) Chest, Pa & Lat (08/09/16 17:30) Albuterol-Ipratropium Neb (Duoneb Neb) (08/09/16 17:30) MDM Supervised Visit with ALISON: Yes Interpretation(s) EKG shows sinus rhythm in the 80s without STEMI criteria Last 24 hours Impressions Chest X-Ray 08/09/16 1730 Signed Impressions: Service Date/Time: Tuesday, August 09, 2016 17:57 - CONCLUSION: No acute disease. Shyam Navarro MD Narrative Course I, Dr. marques, have reviewed the advance practice practitioner's documentation and am in agreement, met with the patient face to face, made the diagnosis, and the medical decision making was done by me. *My assessment and Findings: 21-year-old female presents with intermittent shortness of breath. She denies any recent travel, history of blood clots, control use or family history of blood clots. She is currently 100% on room air, respiratory rate is 14 and her heart rate is in the 80s. Patient denies heavy menstrual cycles or history of anemia. Chest x-ray shows no acute process. Patient feeling better after breathing treatment and peak flow has increased. Advised to continue albuterol as needed and she should set up a primary care follow-up closely with possible pulmonology referral for official PFTs. She is in agreement to this plan. She understands that if her breathing worsens or she develops new symptoms she needs to return immediately to the emergency department given the limited workup we did here in the ER. Diagnosis Primary Impression: Mild shortness of breath Referrals: Primary Care Physician 1 day Director Medical Writing call for appointment Patient Instructions: General Instructions, How to Use a Metered-Dose Inhaler and a Spacer (ED) Departure Forms: Tests/Procedures Additional Instruction: continue with the albuterol 2 puffs every 4-6 hours when necessary. follow-up with local primary care physician and a air drill operator if symptoms continue. Patient can always return to the emergency department if symptoms worsen as discussed. Med/Other Pt SpecificInfo: No Change to Meds Scripts No Active Prescriptions or Reported Meds Disposition: DISCHARGE HOME Condition: Stable Roberta Marques MD August 09, 2016 18:39 No Active Prescriptions or Reported Meds Disposition: DISCHARGE HOME Condition: Stable Roberta Marques MD August 09, 2016 18:39
--- NOTE | 2016-08-09 22:38 | EKG ---
Date Performed: 08/09/2016 Time Performed: 17:35:54 PTAGE: 21 years EKG: Sinus rhythm rSr'(V1) - probable normal variant Normal ECG PREVIOUS TRACING : 06/21/2016 09.56 No significant change from previous tracing noted. DOCTOR: Yaron Connolly Interpretating Date/Time 08/09/2016 22:36:33
== END 2016-08-09 18:40 | disposition home or self-care (01) ==
LOC: PHEFT 17:12
DX: R06.02 Shortness of breath (principal)
CPT/HCPCS: 71020; 93005; 94664; 94799

== ENCOUNTER 2017-02-28 20:47 | Emergency (ER) | payer MEDICAID ==
[~2017-02-28] VITALS: Ht 160 cm; Wt 58.5 kg
[2017-02-28 20:50] VITALS: BP 112/76; PULSE 84; RESP 22; TEMP 98.7; O2SAT 98
--- NOTE | 2017-02-28 21:23 | PD ---
HPI Chief Complaint: Cold / Flu Symptoms Time Seen by Provider: 21:20 Travel History International Travel<30 days: No Contact w/Intl Traveler<30days: No Traveled to known affect area: No History of Present Illness HPI 23 year-old female presents to the emergency department for complaint of fever chills sore throat nonproductive cough allergens and arthralgias 5 days. Patient states she presents at this time due to persistent sore throat and fever. Patient states she did have the flu vaccine for this season. Patient denies any other concerns or complaints. No shortness of breath no chest pain abdominal pain no nausea no vomiting no diarrhea no flank pain and dysuria frequency urgency and patient denies . Patient rates her throat pain 6 /10 intensity and has been using [id number] antipyretic. PFSH Past Medical History Narrative Medical Asthma, migraines; no surgery; tobacco use; nursing notes reviewed Asthma: Yes Diminished Hearing: No Medical other: Yes (hypoglycemia ) Respiratory: Yes (asthma) Migraines: Yes Tetanus Vaccination: < 5 Years Influenza Vaccination: No ?: Not LMP: LAST WEEK Past Surgical History Surgical History: No Previous Surgery Social History Alcohol Use: No Tobacco Use: No Substance Use: No Allergies-Medications (Allergen,Severity, Reaction): Coded Allergies: No Known Allergies (Unverified Adverse Reaction, Unknown, 02/28/17) Reported Meds & Prescriptions Reported Meds & Active Scripts Active No Active Prescriptions or Reported Medications Review of Systems Except as stated in HPI: all other systems reviewed are Neg General / Constitutional: Positive: Fever, Chills HENT: Positive: Sore Throat, Congestion Cardiovascular: No: Chest Pain or Discomfort Respiratory: Positive: Cough, No: Shortness of Breath, Wheezing Gastrointestinal: No: Nausea, Vomiting, Diarrhea, Abdominal Pain Genitourinary: No: Urgency, Frequency, Dysuria Musculoskeletal: Positive: Myalgias, Arthralgias Skin: No Rash Neurologic: No: Weakness Psychiatric: No: Anxiety Hematologic/Lymphatic: No: Lymph Node Enlargement Physical Exam Narrative GENERAL: Well-developed well-nourished female in no acute distress no respiratory distress; no stridor or hoarseness. SKIN: Warm and dry. HEAD: Normocephalic. EYES: No scleral icterus. No injection or drainage. ENT: Mucous membranes moist airway is patent posterior pharynx erythema without exudate of change or edema NECK: Supple, trachea midline. No JVD or lymphadenopathy. CARDIOVASCULAR: Regular rate and rhythm without murmurs, gallops, or rubs. RESPIRATORY: Breath sounds equal bilaterally. No accessory muscle use. GASTROINTESTINAL: Abdomen soft, non-tender, nondistended. MUSCULOSKELETAL: No cyanosis, or edema. BACK: Nontender without obvious deformity. No CVA tenderness. Data Data Last Documented VS Vital Signs Date Time Temp Pulse Resp B/P (MAP) Pulse Ox O2 Delivery O2 Flow Rate FiO2 02/28/17 20:59 Room Air 02/28/17 20:50 98.7 84 22 112/76 (88) 98 Orders Orders Group A Rapid Strep Screen (02/28/17 21:20) Strep Culture (Group A) (02/28/17 21:25) Ed Discharge Order (02/28/17 22:06) MDM Medical Decision Making Medical Screen Exam Complete: Yes Emergency Medical Condition: Yes Medical Record Reviewed: Yes Interpretation(s) Rapid strep antigen: Negative Differential Diagnosis Viral syndrome, pharyngitis tonsillitis, sinusitis, bronchitis, pneumonia, influenza Narrative Course Patient with 5 day course of fever chills cough congestion sore throat myalgias and arthralgias status post flu vaccine; specimen collected for rapid strep antigen patient denies any GI or urinary tract symptoms and denies is 1 week post normal menses. Triage vital signs found to be in normal range no medications for discomfort or fever administered or indicated at this time. Rapid strep antigen is negative patient is otherwise stable for outpatient management and follow-up with her primary care provider. Referrals: Primary Care Physician call for appointment Patient Instructions: General Instructions Departure Forms: Tests/Procedures, Work Release Special Instructions: no work x 1 day Additional Instructions: Increase fluid hydration Monitor temperature every 4 hours with thermometer take as needed acetaminophen/ Tylenol every 4 hours for fever 100.4F or greater and/or ibuprofen/Advil/ Motrin 600 mg as often as every 6-8 hours do not take any more often than those complete course of antibiotic as prescribed Follow-up with your primary care provider Return to the emergency department for any concerns or change in condition No work times one day Med/Other Pt SpecificInfo: Prescription(s) given Scripts Azithromycin (Zithromax Z-Ivan) 250 Mg Dspk 250 MG PO DIRECTED for Infection, #1 DSPK 0 Refills 500 MG (2 tabs) day 1, then 1 tab days 2-5. Prov: Esperanza Bishop MD 02/28/17 Disposition: 01 DISCHARGE HOME Condition: Stable Esperanza Bishop MD Feb 28, 2017 21:23
[2017-02-28] MEDS ORDERED: ZITHTAB PO (22:07)
== END 2017-02-28 22:36 | disposition home or self-care (01) ==
LOC: PHEFT 20:47
DX: J02.9 Acute pharyngitis, unspecified (principal); J45.909 Unspecified asthma, uncomplicated
CPT/HCPCS: 87081; 87880; 99283

== ENCOUNTER 2017-06-06 21:32 | Emergency (ER) | payer MEDICAID ==
[~2017-06-06] VITALS: Ht 160 cm; Wt 53.0 kg
[~2017-06-06 21:32] MED LIST changes: -BACT800T5 PO; +ZITHTAB PO
[2017-06-06 21:55] VITALS: BP 100/70; PULSE 106; RESP 18; TEMP 97.5; O2SAT 98
--- NOTE | 2017-06-06 22:07 | PD ---
HPI Chief Complaint: Chest Pain Time Seen by Provider: 21:58 Travel History International Travel<30 days: No Contact w/Intl Traveler<30days: No Traveled to known affect area: No History of Present Illness HPI The patient is a 22-year-old female that complains of a sharp, pleuritic chest pain on both sides of her chest. She states it hurts to touch the area of the sternum and below both breasts on the ribs. The pain is a 9/10 in intensity. She denies any fever or cough. She denies any nausea, vomiting or diarrhea. She states there is no possibility of . [facility] Past Medical History Medical History: Denies Significant Hx Asthma: Yes Diminished Hearing: No Respiratory: Yes (asthma) Migraines: Yes Influenza Vaccination: No ?: Not LMP: 05/24/2017 Past Surgical History Surgical History: No Previous Surgery Social History Alcohol Use: No Tobacco Use: No Substance Use: No Allergies-Medications (Allergen,Severity, Reaction): Coded Allergies: No Known Allergies (Unverified Adverse Reaction, Unknown, 06/06/17) Reported Meds & Prescriptions Reported Meds & Active Scripts Active Review of Systems Except as stated in HPI: all other systems reviewed are Neg Physical Exam Narrative GENERAL: The patient is alert, oriented 3 and moderate apparent distress with her sharp, pleuritic chest pain. Her vital signs show temperature 97.5 with pulse rate of 106 but otherwise normal. Oximetry is 98% on room air. SKIN: Focused skin assessment warm/dry. HEAD: Atraumatic. Normocephalic. EYES: Pupils equal and round. No scleral icterus. No injection or drainage. ENT: No nasal bleeding or discharge. Mucous membranes pink and moist. NECK: Trachea midline. No JVD. CARDIOVASCULAR: Regular rate and rhythm. No murmur appreciated. RESPIRATORY: No accessory muscle use. Clear to auscultation. Breath sounds equal bilaterally. I can completely reproduce the patient's pain by pressing on the ribs below the breasts and costochondral junctions. GASTROINTESTINAL: Abdomen soft, non-tender, nondistended. Hepatic and splenic margins not palpable. MUSCULOSKELETAL: No obvious deformities. No clubbing. No cyanosis. No edema. NEUROLOGICAL: Awake and alert. No obvious cranial nerve deficits. Motor grossly within normal limits. Normal speech. PSYCHIATRIC: Appropriate mood and affect; insight and judgment normal. Data Data Last Documented VS Vital Signs Date Time Temp Pulse Resp B/P (MAP) Pulse Ox O2 Delivery O2 Flow Rate FiO2 06/06/17 22:55 80 18 103/58 (73) 98 Room Air 06/06/17 21:55 97.5 Orders Orders Chest, Pa & Lat (06/06/17 22:07) MDM Medical Decision Making Medical Screen Exam Complete: Yes Emergency Medical Condition: Yes Medical Record Reviewed: Yes Interpretation(s) The EKG shows sinus rhythm with a rate of [address] elevation or depression. The chest x-ray shows no acute disease. Differential Diagnosis Chest wall pain, pneumothorax-unlikely, pulmonary embolus-unlikely, acute coronary syndrome-extremely unlikely, pneumonia Narrative Course The patient has chest wall pain. Plan: She'll be given Motrin 600 mg 3 times daily. She will be given a shot of Toradol tonight. Diagnosis Primary Impression: Chest wall pain Additional Instructions: As we discussed, take the Motrin regularly, 1 tablet 3 times daily. Follow-up this week with a primary care physician. Med/Other Pt SpecificInfo: Prescription(s) given Scripts Ibuprofen (Ibuprofen) 600 Mg Tab 600 MG PO TID, #44 TAB 0 Refills Prov: Mika Willis MD 06/06/17 Disposition: 01 DISCHARGE HOME Condition: Stable Mika Willis MD Jun 06, 2017 22:07
[2017-06-06 22:10] VITALS: BP 106/62; PULSE 76; RESP 18; O2SAT 97
[2017-06-06 22:25] VITALS: BP 105/61; PULSE 80; RESP 18; O2SAT 96
--- NOTE | 2017-06-06 22:34 | RADRPT ---
EXAM DATE/TIME: 06/06/2017 22:09 [facility] COMPARISON: No previous studies available for comparison. INDICATIONS : Chest pain. MEDICAL HISTORY : Asthma. SURGICAL HISTORY : None. ENCOUNTER: Initial ACUITY: 1 day PAIN SCORE: 5/10 LOCATION: chest substernal. FINDINGS: PA and lateral views of the chest demonstrate the lungs to be symmetrically aerated without evidence of mass, infiltrate or effusion. The cardiomediastinal contours are unremarkable. Osseous structure s are intact. CONCLUSION: No acute disease. Lemuel Carrasco MD on June 06, 2017 at 22:32 Board Certified Radiologist. This report was verified electronically.
[2017-06-06 22:40] VITALS: BP 107/57; PULSE 86; RESP 18; O2SAT 98
[2017-06-06 22:55] VITALS: BP 103/58; PULSE 80; RESP 18; O2SAT 98
[2017-06-06] MEDS ORDERED: IBUP-232 PO (23:12)
[2017-06-06] MEDS ORDERED: KETOROLAC TROMETHAMINE 60 MG/2 ML (IM) VIAL IM ONE (23:30)
[2017-06-06] MEDS ORDERED: TRAM50TA PO (23:49)
[2017-06-07 00:06] VITALS: BP 114/70; TEMP 98.1
--- NOTE | 2017-06-09 11:34 | EKG ---
Date Performed: 06/06/2017 Time Performed: 21:46:38 PTAGE: 22 years EKG: Sinus rhythm WITH MARKED SINUS ARRHYTHMIA BORDERLINE ECG Since the prior tracing, there has been no significant c tracy PREVIOUS TRACING DOCTOR: Lynn Bearden Interpretating Date/Time 06/09/2017 11:30:55
== END 2017-06-07 00:09 | disposition home or self-care (01) ==
LOC: PHED 21:32
DX: R07.89 Other chest pain (principal)
CPT/HCPCS: 71046; 93005; 99283; J1885

== ENCOUNTER 2017-06-13 09:42 | Emergency (ER) | payer SELFPAY ==
[~2017-06-13] VITALS: Ht 160 cm; Wt 52.0 kg
[~2017-06-13 09:42] MED LIST changes: +IBUP-232 PO; +TRAM50TA PO; -ZITHTAB PO
[2017-06-13 09:46] VITALS: BP 122/64; PULSE 80; RESP 16; TEMP 97.4; O2SAT 97
--- NOTE | 2017-06-13 11:27 | RADRPT ---
EXAM DATE/TIME: 06/13/2017 10:47 [facility] COMPARISON: No previous studies available for comparison. INDICATIONS : Right finger pain post slamming hand in door MEDICAL HISTORY : None. SURGICAL HISTORY : None. ENCOUNTER: Initial ACUITY: 1 day PAIN SCORE: 10/10 LOCATION: Right distal 2nd digit FINDINGS: Examination of the second digit of the right hand demonstrates no evidence of fracture or dislocation . No radiopaque foreign bodies are seen. The soft tissues are intact. CONCLUSION: Unremarkable examination of the right second finger. Dar Callahan Jr., MD on June 13, 2017 at 11:24 Board Certified Radiologist. This report was verified electronically.
[2017-06-13] MEDS ORDERED: LIDOCAINE HCL 1% PF 30 ML VIAL ONE (12:23)
[2017-06-13] MEDS ORDERED: BUPIVACAINE HCL PF 0.5% 10 ML VIAL INFIL ONE (12:30)
[2017-06-13] MEDS ORDERED: LIDOCAINE HCL 1% 50 ML VIAL INFIL ONE (12:30)
--- NOTE | 2017-06-13 12:45 | PD ---
Physical Exam Date Seen by Provider: Jun 13, 2017 Time Seen by Provider: 12:43 Narrative 22-year-old female that presents to the ED for evaluation of injury to her right index finger. I was asked to evaluate the patient for nail removal. Please refer to my attending's note. Data Data Last Documented VS Vital Signs Date Time Temp Pulse Resp B/P (MAP) Pulse Ox O2 Delivery O2 Flow Rate FiO2 06/13/17 09:46 97.4 80 16 122/64 (83) 97 Orders Orders Finger ([id number]) (06/13/17 ) Wound Care (06/13/17 12:19) Bupivacaine Pf 0.5% Inj (Marcaine Pf 0.5 (06/13/17 12:30) Lidocaine 1% Inj (50 Ml) (Xylocaine 1% I (06/13/17 12:30) Lidocaine Pf 1% Inj (Xylocaine-Mpf 1% In (06/13/17 12:23) MDM Medical Record Reviewed: Yes Supervised Visit with ALISON: No Procedures Procedure Narrative LACERATION LOCATION: right index finger LENGTH: 0.5 cm with nail involvement NUMBER OF STITCHES/DELFINA: none, xerofoam and removal of avulsed part of nail REPAIR: The area of the laceration was prepped with Betadine and sterilely draped. The laceration was infiltrated with 1% Xylocaine for digital block The wound was copiously irrigated and explored without evidence of foreign body , tendon injury or neurovascular injury. The wound was closed using xerofoam and sterile dressing. Using sterile sizzors and twizzers small piece of avulsed nail removed by me. A sterile dressing was applied. The patient was advised to keep the dressing clean and dry. Patient tolerated the procedure well. Giacomo Hammond Jun 13, 2017 12:45
--- NOTE | 2017-06-13 13:08 | PD ---
HPI Chief Complaint: Injury Time Seen by Provider: 11:05 Travel History International Travel<30 days: No Contact w/Intl Traveler<30days: No Traveled to known affect area: No History of Present Illness HPI This 22-year-old female caught her right index finger in a car door shortly before arrival. She is complaining of a lot of pain. She had bleeding from the site. There is no other injury PFSH Past Medical History Asthma: Yes Diminished Hearing: No Respiratory: Yes (asthma) Migraines: Yes ?: Not LMP: 05/16/17 Social History Alcohol Use: No Tobacco Use: No Substance Use: No Allergies-Medications (Allergen,Severity, Reaction): Coded Allergies: No Known Allergies (Unverified Adverse Reaction, Unknown, 06/13/17) Reported Meds & Prescriptions Reported Meds & Active Scripts Active Tramadol (Tramadol HCl) 50 Mg Tab 50 Mg PO Q4H PRN Ibuprofen 600 Mg Tab 600 Mg PO TID Review of Systems General / Constitutional: No: Fever, Chills Cardiovascular: No: Chest Pain or Discomfort, Palpitations, Diaphoresis Respiratory: No: Shortness of Breath Gastrointestinal: No: Vomiting, Diarrhea Physical Exam Narrative GENERAL: Well-developed female SKIN: Focused skin assessment warm/dry. HEAD: Atraumatic. Normocephalic. EYES: Pupils equal and round. No scleral icterus. No injection or drainage. ENT: No nasal bleeding or discharge. Mucous membranes pink and moist. MUSCULOSKELETAL: No obvious deformities. No clubbing. No cyanosis. No edema. Right index finger has swelling and tenderness of the distal phalanx. There is a laceration which extends through the nail NEUROLOGICAL: Awake and alert. No obvious cranial nerve deficits. Motor grossly within normal limits. Normal speech. PSYCHIATRIC: Appropriate mood and affect; insight and judgment normal. Data Data Last Documented VS Vital Signs Date Time Temp Pulse Resp B/P (MAP) Pulse Ox O2 Delivery O2 Flow Rate FiO2 06/13/17 09:46 97.4 80 16 122/64 (83) 97 Orders Orders Finger ([id number]) (06/13/17 ) Wound Care (06/13/17 12:19) Bupivacaine Pf 0.5% Inj (Marcaine Pf 0.5 (06/13/17 12:30) Lidocaine 1% Inj (50 Ml) (Xylocaine 1% I (06/13/17 12:30) Lidocaine Pf 1% Inj (Xylocaine-Mpf 1% In (06/13/17 12:23) Ed Discharge Order (06/13/17 13:03) MDM Medical Decision Making Medical Screen Exam Complete: Yes Emergency Medical Condition: Yes Medical Record Reviewed: Yes Differential Diagnosis Differential includes fracture, laceration Narrative Course X-rays negative for fracture. Physician's assistant drafter has been asked to care for the wound. Diagnosis Primary Impression: Laceration of finger Referrals: Primary Care Physician call for appointment Patient Instructions: General Instructions Departure Forms: Work Release, Enter return to work date: Jun 16, 2017 Tests/Procedures Disposition: 01 DISCHARGE HOME Condition: Stable Matt Farnsworth MD Jun 13, 2017 13:08
== END 2017-06-13 13:13 | disposition home or self-care (01) ==
LOC: PHEFT 09:42
DX: S61.210A Laceration without foreign body of right index finger without damage to nail, initial encounter (principal); J45.909 Unspecified asthma, uncomplicated; W23.0XXA Caught, crushed, jammed, or pinched between moving objects, initial encounter
CPT/HCPCS: 11730; 12001; 73140